=== PATIENT | male | born 1965 | race Caucasian/White ===

== ENCOUNTER 2016-11-17 10:38 | Observation (INO) | payer SELFPAY ==
[~2016-11-17] VITALS: Ht 175.3 cm; Wt 83.9 kg
[2016-11-17] VITALS (12 sets, daily range): BP systolic 140–176; RESP 12–19; TEMP 97–97.7; Ht 175.3 cm; Wt 83.9 kg
[2016-11-17] MEDS ORDERED: SODIUM CHLORIDE 0.9% 1,000 ML ONE (11:46)
[2016-11-17] MEDS ORDERED: ONDANSETRON 4 MG VIAL ONE ×2 (11:46→14:46)
[2016-11-17] MEDS ORDERED: cloNIDine 0.1 MG TAB ONE (11:46)
[2016-11-17] MEDS ORDERED: DILAUDID 1 MG/ML AMP ONE (14:46)
[2016-11-17] MEDS ORDERED: OPTIRAY 350 100 ML VIAL HMH IV ONE (16:42)
[2016-11-17] MEDS ORDERED: ONDANSETRON 4 MG VIAL IV PRN (16:45)
[2016-11-17] MEDS ORDERED: CLEVIDIPINE 25 MG/50 ML 50 ML IV SCH ×2 (16:45→17:45)
[2016-11-17] MEDS ORDERED: ACETAMINOPHEN 325 MG TAB PO PRN (16:45)
[2016-11-17] MEDS ORDERED: ALU/MAG/SIM 30 ML UDC PO PRN (16:45)
[2016-11-17] MEDS ORDERED: SALINE FLUSH 10 ML FLUSH PRN (16:45)
[2016-11-17] MEDS ORDERED: PROMETHAZINE 25 MG/ML VIAL ONE (16:59)
[2016-11-17] MEDS ORDERED: SODIUM CHLORIDE 0.9% 50 ML IV ONE (16:59)
[2016-11-17] MEDS: FLUTICASONE 0.05% NA BTL NARE EACH SCH (18:47)
[2016-11-17] MEDS: LORATADINE 10 MG TAB PO SCH (18:48)
[2016-11-17] MEDS: ASPIRIN 81 MG CHEW TAB PO SCH (18:48)
[2016-11-17] MEDS: LISINOPRIL/HCTZ 20/12.5 TAB PO SCH (18:48)
[2016-11-17] MEDS: ENOXAPARIN 40 MG/0.4 ML SYR SUBQ SCH (18:49)
[2016-11-17] MEDS: SALINE FLUSH 10 ML FLUSH SCH (19:37)
[2016-11-18] VITALS (18 sets, daily range): BP systolic 109–154; RESP 13–19; TEMP 97.7–98.2
[2016-11-18] MEDS ORDERED: SODIUM CHLORIDE 0.9% FLUSH BAG 500 ML IV SCH (06:00)
[2016-11-18] MEDS: SALINE FLUSH 10 ML FLUSH SCH (07:59)
[2016-11-18] MEDS: ASPIRIN 81 MG CHEW TAB PO SCH (07:59)
[2016-11-18] MEDS: FLUTICASONE 0.05% NA BTL NARE EACH SCH (07:59)
[2016-11-18] MEDS: LORATADINE 10 MG TAB PO SCH (07:59)
[2016-11-18] MEDS: LISINOPRIL/HCTZ 20/12.5 TAB PO SCH (08:00)
[2016-11-18] MEDS: ENOXAPARIN 40 MG/0.4 ML SYR SUBQ SCH (08:01)
== END 2016-11-18 09:39 | disposition home or self-care (01) ==
LOC: ENRESERVDT → ENRESERVTM → ER 10:38 → ENPENDDIS 16:41 → EMR 16:41 → ICU 18:03
PROVIDERS: ADMIT Internal Medicine; ATTEND Internal Medicine
DX: I16.0 Hypertensive urgency (principal); J01.00 Acute maxillary sinusitis, unspecified; R07.89 Other chest pain; I10 Essential (primary) hypertension; E78.5 Hyperlipidemia, unspecified; F17.210 Nicotine dependence, cigarettes, uncomplicated; F12.10 Cannabis abuse, uncomplicated; E11.9 Type 2 diabetes mellitus without complications; Z79.82 Long term (current) use of aspirin
CPT/HCPCS: 36415; 70450; 71010; 71260; 80048; 80053; 80061; 82553; 83036; 83690; 83880; 84484; 85025; 87804; 93005; 93306; 96361; 96365; 96375; 96376; 99233